=== PATIENT | male | born 1975 | race African-American/Black ===

== ENCOUNTER 2022-07-26 04:21 | Emergency (ER) | payer OTHER ==
[~2022-07-26] VITALS: Ht 182.9 cm; Wt 86.2 kg
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
[2022-07-26] MEDS ORDERED: IBUPROFEN 400 MG TABLET ONE (05:14)
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
[2022-07-26] MEDS ORDERED: IBUPROFEN 400 MG TABLET PO ONE (05:30)
--- NOTE | 2022-07-26 05:53 | NUR ---
PT RETURNED TO ER ROOM [address] VIA W/C
--- NOTE | 2022-07-26 06:52 | NUR ---
Patient discharged to home in stable condition. Written and verbal after care instructions given. Patient verbalizes understanding of instruction. PT ambulatory with a steady gait
[2022-07-26 06:54] VITALS: BP 121/87
== END 2022-07-26 06:54 | disposition home or self-care (01) ==
LOC: ER 04:23
DX: M54.50 Low back pain, unspecified (principal); M54.2 Cervicalgia; F17.200 Nicotine dependence, unspecified, uncomplicated; Z60.2 Problems related to living alone
CPT/HCPCS: 71045-TC; 72050-TC; 72110-TC